=== PATIENT | female | born 1930 | race Two or more races ===

== ENCOUNTER → 2016-07-06 | Outpatient (CLI) | payer MEDICARE, OTHER ==
[2016-07-06 11:50] LABS: Urine RBC None Seen /hpf (0 - 4)
[2016-07-06 12:12] LABS: Basophils # (auto) 0 uL; Basophils % (auto) 0.3 % (0.0-2.0); Eosinophils # (auto) 0.5 uL; Eosinophils % (auto) 7.3 % (0.0-7.0); Lymphocytes # (auto) 1.4 uL; Lymphocytes % (auto) 20.4 % (10.0-50.0); Mean Corpuscular Hemoglobin 29.1 pg (28.0-32.0); Mean Corpuscular Hgb Conc. 33.4 g/dL (32.0-36.0); Mean Corpuscular Volume 87.1 fL (80.0-100.0); Mean Platelet Volume 8.9 fL (7.4-10.4); Monocytes # (auto) 0.7 uL; Neutrophils # (auto) 4.1 uL; Platelet Count (auto) 249 10^3/uL (140-450); Red Cell Distribution Width 14.6 % (11.6-16.0); White Blood Cell 6.7 10^3/uL (4.4-10.8)
[2016-07-06 12:37] LABS: Albumin 3.3 g/dL (3.4-5.0); BUN/Creatinine Ratio 41.4; Bilirubin, Total 0.4 mg/dL (0.2-1.0); Potassium 4.3 mmol/L (3.5-5.1); Total Protein 8.7 g/dL (6.4-8.2)
[2016-07-06 13:37] LABS: Urine Bilirubin Negative (Negative); Urine Blood Negative /uL (Negative); Urine Color Yellow (Yellow); Urine Glucose Normal (Normal); Urine Hyaline Cast FEW /lpf (0 - 2); Urine Ketone Negative (Negative); Urine Nitrite Negative (Negative); Urine Squamous Epithelial Cell FEW /hpf (<5); Urine Urobilinogen Normal (Negative); Urine pH 5.5 (5.0-8.0)
== END | disposition home or self-care (01) ==
LOC: LAB 10:45
PROVIDERS: ATTEND Internal Medicine
DX: E11.9 Type 2 diabetes mellitus without complications (principal); I10 Essential (primary) hypertension
CPT/HCPCS: 36415; 80053; 80061; 81001; 82043; 82607; 83036; 84439; 84443; 85025; 85652

== ENCOUNTER → 2016-07-16 | Outpatient (CLI) | payer MEDICARE, OTHER ==
[2016-07-16 11:08] LABS: Basophils # (auto) 0 uL; Basophils % (auto) 0.4 % (0.0-2.0); Eosinophils # (auto) 0.4 uL; Eosinophils % (auto) 5.9 % (0.0-7.0); Hematocrit 28.8 % (36.0-46.0); Hemoglobin 9.5 g/dL (12.2-16.2); Lymphocytes # (auto) 1.3 uL; Lymphocytes % (auto) 19.1 % (10.0-50.0); Mean Corpuscular Hemoglobin 28.8 pg (28.0-32.0); Mean Corpuscular Hgb Conc. 33.2 g/dL (32.0-36.0); Mean Corpuscular Volume 86.9 fL (80.0-100.0); Mean Platelet Volume 8.6 fL (7.4-10.4); Monocytes # (auto) 0.6 uL; Monocytes % (auto) 8.3 % (0.0-12.0); Neutrophils # (auto) 4.6 uL; Neutrophils % (auto) 66.3 % (37.0-80.0); Platelet Count (auto) 260 10^3/uL (140-450); Red Cell Distribution Width 14.6 % (11.6-16.0)
[2016-07-16 11:32] LABS: Uric Acid 10.1 mg/dL (2.6-6.0)
[2016-07-16 12:06] LABS: BUN/Creatinine Ratio 39.6; Calcium 9.2 mg/dL (8.5-10.1); Potassium 4.5 mmol/L (3.5-5.1)
== END | disposition home or self-care (01) ==
LOC: LAB 09:05
PROVIDERS: ATTEND Internal Medicine
DX: E11.9 Type 2 diabetes mellitus without complications (principal); D64.9 Anemia, unspecified
CPT/HCPCS: 36415; 80048; 82607; 83540; 83550; 84550; 85025

== ENCOUNTER → 2016-10-22 | Outpatient (CLI) | payer MEDICARE, OTHER ==
[2016-10-22 12:31] LABS: Basophils # (auto) 0 uL; Basophils % (auto) 0.4 % (0.0-2.0); Eosinophils # (auto) 0.5 uL; Eosinophils % (auto) 5.8 % (0.0-7.0); Hematocrit 27.9 % (36.0-46.0); Hemoglobin 9.5 g/dL (12.2-16.2); Lymphocytes # (auto) 1.2 uL; Lymphocytes % (auto) 14.9 % (10.0-50.0); Mean Corpuscular Hemoglobin 30.9 pg (28.0-32.0); Mean Corpuscular Volume 90.9 fL (80.0-100.0); Mean Platelet Volume 8.1 fL (7.4-10.4); Monocytes # (auto) 0.6 uL; Monocytes % (auto) 7.5 % (0.0-12.0); Neutrophils # (auto) 5.6 uL; Neutrophils % (auto) 71.4 % (37.0-80.0); Platelet Count (auto) 242 10^3/uL (140-450); Red Cell Distribution Width 18.6 % (11.6-16.0); White Blood Cell 7.9 10^3/uL (4.4-10.8)
[2016-10-22 12:57] LABS: Albumin 3.3 g/dL (3.4-5.0); BUN/Creatinine Ratio 38.8; Bilirubin, Total 0.4 mg/dL (0.2-1.0); Potassium 4.1 mmol/L (3.5-5.1); Total Protein 8.3 g/dL (6.4-8.2); Uric Acid 3.8 mg/dL (2.6-6.0)
== END | disposition home or self-care (01) ==
LOC: LAB 11:19
PROVIDERS: ATTEND Internal Medicine
DX: E11.9 Type 2 diabetes mellitus without complications (principal); E79.0 Hyperuricemia without signs of inflammatory arthritis and tophaceous disease; N18.3 Chronic kidney disease, stage 3 (moderate)
CPT/HCPCS: 36415; 80053; 83036; 84439; 84443; 84550; 85025

== ENCOUNTER 2016-12-10 12:13 | Emergency (ER) | payer MEDICARE, OTHER ==
[~2016-12-10] VITALS: Ht 154.9 cm; Wt 59.0 kg
[2016-12-10 14:35] LABS: Basophils # (auto) 0 uL; Basophils % (auto) 0.4 % (0.0-2.0); CONDITION Y; Eosinophils # (auto) 0.7 uL; Eosinophils % (auto) 9.3 % (0.0-7.0); Hematocrit 29.5 % (36.0-46.0); Hemoglobin 9.8 g/dL (12.2-16.2); Lymphocytes # (auto) 1.2 uL; Lymphocytes % (auto) 16.2 % (10.0-50.0); Mean Corpuscular Hemoglobin 31.6 pg (28.0-32.0); Mean Corpuscular Hgb Conc. 33.2 g/dL (32.0-36.0); Mean Corpuscular Volume 95.1 fL (80.0-100.0); Monocytes # (auto) 0.8 uL; Monocytes % (auto) 11.5 % (0.0-12.0); Neutrophils # (auto) 4.5 uL; Neutrophils % (auto) 62.6 % (37.0-80.0); Platelet Count (auto) 242 10^3/uL (140-450); Red Cell Distribution Width 16.9 % (11.6-16.0); White Blood Cell 7.2 10^3/uL (4.4-10.8)
[2016-12-10 15:00] VITALS: BP 135/75
[2016-12-10 15:32] LABS: Albumin 3.3 g/dL (3.4-5.0); BUN/Creatinine Ratio 35.8; Bilirubin, Total 0.3 mg/dL (0.2-1.0); Potassium 4.1 mmol/L (3.5-5.1); Total Protein 8.7 g/dL (6.4-8.2)
[2016-12-10] MEDS ORDERED: cefTRIAXone SOD 1,000 MG VL IM ONE (16:00)
== END 2016-12-10 16:10 | disposition home or self-care (01) ==
LOC: ER 12:21
DX: N89.8 Other specified noninflammatory disorders of vagina (principal); N39.0 Urinary tract infection, site not specified; D64.9 Anemia, unspecified; I12.0 Hypertensive chronic kidney disease with stage 5 chronic kidney disease or end stage renal disease; N18.9 Chronic kidney disease, unspecified
CPT/HCPCS: 36415; 80053; 81002; 85025; 87205; 96372; 99284; J0696

== ENCOUNTER 2018-02-27 12:42 | Inpatient (IN) | payer MEDICARE, OTHER ==
[~2018-02-27] VITALS: Ht 152.4 cm; Wt 62.2 kg
[2018-02-27] MEDS ORDERED: SODIUM CHLORIDE 0.9% 500 ML IVB ONE (12:50)
[2018-02-27 14:01] LABS: Basophils # (auto) 0.1 uL; Basophils % (auto) 0.6 % (0.0-2.0); Eosinophils # (auto) 0.1 uL; Eosinophils % (auto) 0.6 % (0.0-7.0); Hematocrit 33.7 % (36.0-46.0); Hemoglobin 11.3 g/dL (12.2-16.2); Lymphocytes # (auto) 1.5 uL; Lymphocytes % (auto) 16.6 % (10.0-50.0); Mean Corpuscular Hemoglobin 31.7 pg (28.0-32.0); Mean Corpuscular Hgb Conc. 33.5 g/dL (32.0-36.0); Mean Corpuscular Volume 94.4 fL (80.0-100.0); Monocytes # (auto) 0.8 uL; Monocytes % (auto) 8.6 % (0.0-12.0); Neutrophils # (auto) 6.8 uL; Neutrophils % (auto) 73.6 % (37.0-80.0); Platelet Count (auto) 251 10^3/uL (140-450); Red Blood Cells 3.57 10^6/uL (4.0-5.20); Red Cell Distribution Width 14.6 % (11.8-14.3); White Blood Cell 9.3 10^3/uL (4.4-10.8)
[2018-02-27 14:14] LABS: INR 1.03 (0.9-1.15); Partial Thromboplastin Time 23.1 sec (23.78-33.04)
[2018-02-27 14:20] LABS: Alanine Aminotransferase 16 U/L (13-56); Albumin 3.4 g/dL (3.4-5.0); Anion Gap 11 (5-15); Aspartate Aminotransferase 24 U/L (15-37); BUN/Creatinine Ratio 23.7; Blood Alcohol < 3.0 mg/dL (0-5); Calcium 9.1 mg/dL (8.5-10.1); Carbon Dioxide 24 mmol/L (21-32); Chloride 106 mmol/L (98-107); GFR African American 11 mL/min; GFR Non-African American 9 mL/min; Glucose 218 mg/dL (74-106); Magnesium 2.7 mg/dL (1.6-2.6); Potassium 4.9 mmol/L (3.5-5.1); Sodium 141 mmol/L (136-145)
[2018-02-27 14:25] LABS: Alkaline Phosphatase 105 U/L (45-117); Bilirubin, Total 0.6 mg/dL (0.2-1.0); Blood Urea Nitrogen 110 mg/dL (7-18); Total Protein 8.5 g/dL (6.4-8.2)
[2018-02-27] MEDS ORDERED: DEXTROSE (50%) 50ML SYRG IV PRN (15:00)
[2018-02-27] MEDS ORDERED: ONDANSETRON HCL 4 MG/2 ML VIAL IV PRN (15:00)
[2018-02-27] MEDS ORDERED: MORPHINE SULFATE 4 MG/ML SYR/VIAL IV PRN ×2 (15:00)
[2018-02-27] MEDS ORDERED: HYDROcodone-ACET 5/325MG TAB PO PRN (15:00)
[2018-02-27] MEDS ORDERED: NITROGLYCERIN 0.4 MG SL TAB SL PRN (15:00)
[2018-02-27] MEDS ORDERED: cefTRIAXone 1GM/50ML D5W 50 ML IV ONE ×2 (15:00→15:45)
[2018-02-27] MEDS: SOD CHL 0.45% 1,000 ML IV SCH (16:10)
[2018-02-27] MEDS: ACCU-CHEK COMFORT CURVE STRIP VI SCH (18:57)
[2018-02-27] MEDS: InsuLIN REG 1unit/0.01ml Soln (100units/ml) SC SCH (18:57)
[2018-02-27 21:34] LABS: Urine Bacteria MANY /hpf (None Seen); Urine Blood 3+ /uL (Negative); Urine Specific Gravity 1.016 (1.001-1.035); Urine WBC 308 /hpf (0 - 5); Urine WBC Clumps PRESENT /hpf (None Seen)
[2018-02-27 21:39] LABS: Alcohol, Urine < 3.0 mg/dL (0-5); Amphetamine Screen, Urine NEGATIVE (NEGATIVE); Barbiturate Scree,Urine NEGATIVE (NEGATIVE); Benzodiazephine Screen, Urine POSITIVE (NEGATIVE); Cannabinoid Screen, Urine NEGATIVE (NEGATIVE); Cocaine Screen, Urine NEGATIVE (NEGATIVE); Opiate Scree,Urine NEGATIVE (NEGATIVE); Phencyclidine Screen, Urine NEGATIVE (NEGATIVE)
[2018-02-27] MEDS ORDERED: INFLUENZA QUAD 2018-2019 0.5 ML SYRG IM ONE (21:45)
[2018-02-27] MEDS: metroNIDAZOLE 500MG/100ML 100 ML IV SCH (21:57)
[2018-02-27] MEDS: CARVEDILOL 3.125 MG TAB PO SCH (21:58)
[2018-02-27 22:00] VITALS: BP 170/97
[2018-02-27] MEDS: LABETALOL HCL 5 MG/ML ML 20ML VIAL IV PRN (22:00)
[2018-02-28] VITALS (8 sets, daily range): BP systolic 117–188; BP diastolic 52–106
[2018-02-28] MEDS: ACCU-CHEK COMFORT CURVE STRIP VI SCH ×4 (00:29→17:33)
[2018-02-28] MEDS ORDERED: GLIP-115 PO (02:02)
[2018-02-28] MEDS ORDERED: TEMA30CA5 PO (02:02)
[2018-02-28] MEDS ORDERED: DIPH50CA31 OR (02:02)
[2018-02-28] MEDS ORDERED: TRAM50TA2 PO (02:02)
[2018-02-28] MEDS ORDERED: FURO40TA PO (02:02)
[2018-02-28] MEDS ORDERED: ENAL2.5T PO (02:02)
[2018-02-28] MEDS ORDERED: ALPR0.5T PO (02:02)
[2018-02-28] MEDS ORDERED: MIRT15TA PO (02:02)
[2018-02-28] MEDS ORDERED: ASPI81TA27 PO (02:02)
[2018-02-28] MEDS ORDERED: CARV3.1240 PO (02:02)
[2018-02-28] MEDS ORDERED: DOCU-94 PO (02:02)
[2018-02-28] MEDS: SOD CHL 0.45% 1,000 ML IV SCH (04:20)
[2018-02-28] MEDS: LABETALOL HCL 5 MG/ML ML 20ML VIAL IV PRN ×2 (05:05→18:25)
[2018-02-28] MEDS: metroNIDAZOLE 500MG/100ML 100 ML IV SCH ×3 (05:11→21:48)
[2018-02-28] MEDS: InsuLIN REG 1unit/0.01ml Soln (100units/ml) SC SCH ×4 (05:21→17:33)
[2018-02-28 06:39] LABS: BUN/Creatinine Ratio 24.9; Calcium 9.2 mg/dL (8.5-10.1); Potassium 3.6 mmol/L (3.5-5.1)
[2018-02-28 06:47] LABS: Basophils # (auto) 0.1 uL; Basophils % (auto) 0.6 % (0.0-2.0); Eosinophils # (auto) 0.1 uL; Hematocrit 31.7 % (36.0-46.0); Hemoglobin 10.8 g/dL (12.2-16.2); Lymphocytes # (auto) 1.5 uL; Mean Corpuscular Hemoglobin 31.9 pg (28.0-32.0); Mean Corpuscular Volume 93.8 fL (80.0-100.0); Monocytes # (auto) 1.3 uL; Monocytes % (auto) 15.3 % (0.0-12.0); Neutrophils # (auto) 5.6 uL; Neutrophils % (auto) 65.1 % (37.0-80.0); Nucleated Red Blood Cells % 0.1 %; Platelet Count (auto) 199 10^3/uL (140-450); Red Blood Cells 3.38 10^6/uL (4.0-5.20); Red Cell Distribution Width 14.3 % (11.8-14.3); White Blood Cell 8.5 10^3/uL (4.4-10.8)
[2018-02-28] MEDS ORDERED: cefTRIAXone 1GM/50ML D5W 50 ML IV SCH (09:00)
[2018-02-28] MEDS: ASPirin 81 mg TAB PO SCH (09:24)
[2018-02-28] MEDS: CARVEDILOL 3.125 MG TAB PO SCH (09:24)
[2018-02-28] MEDS ORDERED: ERTAPENEM SOD INJ 0.5 GM in SODIUM CHL 0.9% 50 ML IV ONE (12:00)
[2018-02-28] MEDS: D5W/SOD CHL 0.45% 1,000 ML IV SCH ×2 (12:59→22:00)
[2018-02-28] MEDS: SILVER SULFADIAZINE 1 % TOPICAL CREAM 50GM TOP SCH ×2 (15:02→21:48)
[2018-03-01] MEDS: ACCU-CHEK COMFORT CURVE STRIP VI SCH ×4 (00:02→17:15)
[2018-03-01] MEDS: InsuLIN REG 1unit/0.01ml Soln (100units/ml) SC SCH ×4 (00:13→17:15)
[2018-03-01] MEDS: LABETALOL HCL 5 MG/ML ML 20ML VIAL IV PRN ×5 (00:13→22:35)
[2018-03-01 05:00] VITALS: BP 150/86
[2018-03-01] MEDS: metroNIDAZOLE 500MG/100ML 100 ML IV SCH ×3 (05:39→20:38)
[2018-03-01 05:41] LABS: BUN/Creatinine Ratio 24.8
[2018-03-01 08:11] VITALS: BP 159/79
[2018-03-01] MEDS: D5W/SOD CHL 0.45% 1,000 ML IV SCH ×2 (09:23→20:38)
[2018-03-01] MEDS: ASPirin 81 mg TAB PO SCH (10:00)
[2018-03-01] MEDS: SILVER SULFADIAZINE 1 % TOPICAL CREAM 50GM TOP SCH ×2 (10:00→20:38)
[2018-03-01] MEDS: ERTAPENEM SOD INJ 0.5 GM in SODIUM CHL 0.9% 50 ML IV SCH (10:02)
[2018-03-01 12:01] VITALS: BP 168/78
[2018-03-01] MEDS ORDERED: FLUCONAZOLE 200MG/100ML 100 ML IV ONE (14:45)
[2018-03-01] MEDS ORDERED: POTASSIUM CHL 20MEQ/100ML 100 ML IV ONE (14:45)
[2018-03-01 16:48] VITALS: BP 158/80
[2018-03-01 20:00] VITALS: BP 152/74
[2018-03-01 22:00] VITALS: BP 160/77
[2018-03-02] MEDS: D5W/SOD CHL 0.45% 1,000 ML IV SCH (04:00)
[2018-03-02] MEDS: metroNIDAZOLE 500MG/100ML 100 ML IV SCH ×3 (04:45→20:21)
[2018-03-02] MEDS: ACCU-CHEK COMFORT CURVE STRIP VI SCH ×5 (04:45→23:14)
[2018-03-02] MEDS: LABETALOL HCL 5 MG/ML ML 20ML VIAL IV PRN ×3 (04:46→19:02)
[2018-03-02 05:00] VITALS: BP 157/88
[2018-03-02] MEDS: InsuLIN REG 1unit/0.01ml Soln (100units/ml) SC SCH ×5 (05:29→23:14)
[2018-03-02 06:28] LABS: BUN/Creatinine Ratio 21.9; Calcium 8.4 mg/dL (8.5-10.1); Potassium 3.4 mmol/L (3.5-5.1)
[2018-03-02 08:06] VITALS: BP 153/85
[2018-03-02] MEDS: FLUCONAZOLE 200MG/100ML 100 ML IV SCH (08:19)
[2018-03-02] MEDS ORDERED: FLUCONAZOLE 200MG/100ML 100 ML IV SCH (10:00)
[2018-03-02 10:40] LABS: Basophils # (auto) 0 uL; Basophils % (auto) 0.3 % (0.0-2.0); Eosinophils # (auto) 0.1 uL; Eosinophils % (auto) 1.3 % (0.0-7.0); Hematocrit 26.8 % (36.0-46.0); Hemoglobin 8.9 g/dL (12.2-16.2); Lymphocytes # (auto) 1.1 uL; Lymphocytes % (auto) 11.8 % (10.0-50.0); Mean Corpuscular Hemoglobin 31.9 pg (28.0-32.0); Mean Corpuscular Hgb Conc. 33.2 g/dL (32.0-36.0); Mean Corpuscular Volume 96.3 fL (80.0-100.0); Monocytes # (auto) 1.2 uL; Monocytes % (auto) 12.7 % (0.0-12.0); Neutrophils % (auto) 73.9 % (37.0-80.0); Platelet Count (auto) 158 10^3/uL (140-450); Red Blood Cells 2.79 10^6/uL (4.0-5.20); Red Cell Distribution Width 14.3 % (11.8-14.3); White Blood Cell 9.4 10^3/uL (4.4-10.8)
[2018-03-02] MEDS: ASPirin 81 mg TAB PO SCH (10:44)
[2018-03-02] MEDS: ERTAPENEM SOD INJ 0.5 GM in SODIUM CHL 0.9% 50 ML IV SCH (10:44)
[2018-03-02 12:22] VITALS: BP 127/67
[2018-03-02] MEDS: SILVER SULFADIAZINE 1 % TOPICAL CREAM 50GM TOP SCH ×2 (15:58→21:45)
[2018-03-02] MEDS: POTASSIUM CHLORIDE 20 MEQ in D5W 5% 1,000 ML IV SCH (16:00)
[2018-03-02 17:13] VITALS: BP 152/76
[2018-03-02] MEDS ORDERED: TEMAZEPAM 15 MG CAP PO PRN (21:45)
[2018-03-02 22:00] VITALS: BP 159/83
[2018-03-02 23:09] VITALS: BP 110/61
[2018-03-03 05:00] VITALS: BP 122/59
[2018-03-03] MEDS: metroNIDAZOLE 500MG/100ML 100 ML IV SCH ×3 (05:25→22:10)
[2018-03-03] MEDS: ACCU-CHEK COMFORT CURVE STRIP VI SCH ×4 (05:25→23:49)
[2018-03-03 05:26] LABS: Basophils # (auto) 0 uL; Basophils % (auto) 0.1 % (0.0-2.0); Eosinophils # (auto) 0.4 uL; Eosinophils % (auto) 5.2 % (0.0-7.0); Hematocrit 25.8 % (36.0-46.0); Hemoglobin 8.5 g/dL (12.2-16.2); Lymphocytes # (auto) 1.5 uL; Lymphocytes % (auto) 19.3 % (10.0-50.0); Mean Corpuscular Hemoglobin 32.2 pg (28.0-32.0); Mean Corpuscular Hgb Conc. 33.2 g/dL (32.0-36.0); Mean Corpuscular Volume 97.2 fL (80.0-100.0); Monocytes % (auto) 12.7 % (0.0-12.0); Neutrophils # (auto) 4.9 uL; Neutrophils % (auto) 62.7 % (37.0-80.0); Red Blood Cells 2.65 10^6/uL (4.0-5.20); Red Cell Distribution Width 14.7 % (11.8-14.3); White Blood Cell 7.8 10^3/uL (4.4-10.8)
[2018-03-03] MEDS: InsuLIN REG 1unit/0.01ml Soln (100units/ml) SC SCH ×4 (05:28→23:49)
[2018-03-03 05:40] LABS: Platelet Count (auto) 142 10^3/uL (140-450)
[2018-03-03 05:41] LABS: Calcium 8.5 mg/dL (8.5-10.1); Potassium 3.7 mmol/L (3.5-5.1)
[2018-03-03] MEDS: POTASSIUM CHLORIDE 20 MEQ in D5W 5% 1,000 ML IV SCH ×3 (07:00→12:52)
[2018-03-03 09:00] VITALS: BP 122/62
[2018-03-03] MEDS: FLUCONAZOLE 200MG/100ML 100 ML IV SCH (09:49)
[2018-03-03] MEDS: SILVER SULFADIAZINE 1 % TOPICAL CREAM 50GM TOP SCH ×2 (09:50→22:10)
[2018-03-03] MEDS ORDERED: ALPRAZolam 0.5 MG TAB PO SCH (10:00)
[2018-03-03] MEDS: ASPirin 81 mg TAB PO SCH (10:00)
[2018-03-03] MEDS: ERTAPENEM SOD INJ 0.5 GM in SODIUM CHL 0.9% 50 ML IV SCH (11:00)
[2018-03-03 12:42] VITALS: BP 98/49
[2018-03-03 16:05] VITALS: BP 102/59
[2018-03-03 22:00] VITALS: BP 108/56
[2018-03-03] MEDS: Glucerna Carbsteady SHAKE Vanilla 8oz PO SCH (22:00)
[2018-03-04 04:53] VITALS: BP 89/39
[2018-03-04] MEDS: Glucerna Carbsteady SHAKE Vanilla 8oz PO SCH ×3 (06:00→22:00)
[2018-03-04] MEDS: InsuLIN REG 1unit/0.01ml Soln (100units/ml) SC SCH ×3 (06:00→18:00)
[2018-03-04 06:05] LABS: Basophils # (auto) 0 uL; Basophils % (auto) 0.2 % (0.0-2.0); Eosinophils # (auto) 0.8 uL; Eosinophils % (auto) 9.1 % (0.0-7.0); Hemoglobin 8.5 g/dL (12.2-16.2); Lymphocytes # (auto) 1.1 uL; Lymphocytes % (auto) 12.7 % (10.0-50.0); Mean Corpuscular Hemoglobin 32.9 pg (28.0-32.0); Mean Corpuscular Volume 96.7 fL (80.0-100.0); Monocytes # (auto) 0.8 uL; Monocytes % (auto) 8.8 % (0.0-12.0); Neutrophils # (auto) 6.3 uL; Neutrophils % (auto) 69.2 % (37.0-80.0); Platelet Count (auto) 143 10^3/uL (140-450); Red Blood Cells 2.59 10^6/uL (4.0-5.20); Red Cell Distribution Width 14.4 % (11.8-14.3); White Blood Cell 9.1 10^3/uL (4.4-10.8)
[2018-03-04] MEDS: ACCU-CHEK COMFORT CURVE STRIP VI SCH ×3 (06:10→18:00)
[2018-03-04] MEDS: metroNIDAZOLE 500MG/100ML 100 ML IV SCH ×3 (06:11→22:52)
[2018-03-04 06:18] LABS: Calcium 8.7 mg/dL (8.5-10.1); Potassium 4.3 mmol/L (3.5-5.1)
[2018-03-04 06:22] LABS: BUN/Creatinine Ratio 17.8
[2018-03-04] MEDS: ASPirin 81 mg TAB PO SCH (10:44)
[2018-03-04] MEDS: FLUCONAZOLE 200MG/100ML 100 ML IV SCH (10:44)
[2018-03-04] MEDS: SILVER SULFADIAZINE 1 % TOPICAL CREAM 50GM TOP SCH ×2 (10:45→22:53)
[2018-03-04] MEDS: POTASSIUM CHLORIDE 20 MEQ in D5W 5% 1,000 ML IV SCH (14:27)
[2018-03-04] MEDS: ERTAPENEM SOD INJ 0.5 GM in SODIUM CHL 0.9% 50 ML IV SCH (15:47)
[2018-03-04 18:08] VITALS: BP 124/67
[2018-03-04 21:50] VITALS: BP 113/78
[2018-03-05] MEDS: ACCU-CHEK COMFORT CURVE STRIP VI SCH ×4 (00:21→17:44)
[2018-03-05] MEDS: POTASSIUM CHLORIDE 20 MEQ in D5W 5% 1,000 ML IV SCH ×2 (03:39→23:51)
[2018-03-05 05:00] VITALS: BP 138/75
[2018-03-05] MEDS: metroNIDAZOLE 500MG/100ML 100 ML IV SCH ×3 (05:38→21:40)
[2018-03-05] MEDS: InsuLIN REG 1unit/0.01ml Soln (100units/ml) SC SCH ×4 (05:39→17:44)
[2018-03-05] MEDS: Glucerna Carbsteady SHAKE Vanilla 8oz PO SCH ×3 (05:39→21:41)
[2018-03-05 06:03] LABS: BUN/Creatinine Ratio 19.1; Calcium 8.2 mg/dL (8.5-10.1); Potassium 4.1 mmol/L (3.5-5.1)
[2018-03-05] MEDS: FLUCONAZOLE 200MG/100ML 100 ML IV SCH (08:32)
[2018-03-05 09:48] VITALS: BP 125/66
[2018-03-05] MEDS: ASPirin 81 mg TAB PO SCH (09:57)
[2018-03-05] MEDS: SILVER SULFADIAZINE 1 % TOPICAL CREAM 50GM TOP SCH ×2 (09:58→21:41)
[2018-03-05] MEDS: ERTAPENEM SOD INJ 0.5 GM in SODIUM CHL 0.9% 50 ML IV SCH (10:03)
[2018-03-05 13:30] VITALS: BP 145/76
[2018-03-05 16:53] VITALS: BP 150/80
[2018-03-05 22:00] VITALS: BP 135/72
[2018-03-06] MEDS: ACCU-CHEK COMFORT CURVE STRIP VI SCH ×3 (00:26→11:51)
[2018-03-06] MEDS: InsuLIN REG 1unit/0.01ml Soln (100units/ml) SC SCH ×3 (00:30→11:51)
[2018-03-06 05:00] VITALS: BP 158/76
[2018-03-06 06:05] LABS: Albumin 2.2 g/dL (3.4-5.0); BUN/Creatinine Ratio 20.1; Calcium 8.6 mg/dL (8.5-10.1)
[2018-03-06 06:07] LABS: Bilirubin, Total 0.4 mg/dL (0.2-1.0); Total Protein 6.1 g/dL (6.4-8.2)
[2018-03-06] MEDS: metroNIDAZOLE 500MG/100ML 100 ML IV SCH ×3 (06:22→23:19)
[2018-03-06] MEDS: Glucerna Carbsteady SHAKE Vanilla 8oz PO SCH ×3 (06:25→23:20)
[2018-03-06 09:28] VITALS: BP 159/87
[2018-03-06] MEDS: FLUCONAZOLE 200MG/100ML 100 ML IV SCH (11:14)
[2018-03-06] MEDS: SILVER SULFADIAZINE 1 % TOPICAL CREAM 50GM TOP SCH ×2 (11:14→23:30)
[2018-03-06] MEDS: ASPirin 81 mg TAB PO SCH (11:16)
[2018-03-06 12:01] VITALS: BP 140/72
[2018-03-06] MEDS: ERTAPENEM SOD INJ 0.5 GM in SODIUM CHL 0.9% 50 ML IV SCH (12:27)
[2018-03-06 16:39] VITALS: BP 147/76
[2018-03-06 22:00] VITALS: BP 160/79
[2018-03-07 05:00] VITALS: BP 166/92
[2018-03-07] MEDS: metroNIDAZOLE 500MG/100ML 100 ML IV SCH ×2 (06:32→13:47)
[2018-03-07] MEDS: Glucerna Carbsteady SHAKE Vanilla 8oz PO SCH ×2 (07:00→14:00)
[2018-03-07 08:32] VITALS: BP 164/83
[2018-03-07] MEDS: FLUCONAZOLE 200MG/100ML 100 ML IV SCH (09:05)
[2018-03-07] MEDS: ASPirin 81 mg TAB PO SCH (09:09)
[2018-03-07] MEDS: SILVER SULFADIAZINE 1 % TOPICAL CREAM 50GM TOP SCH (10:25)
[2018-03-07] MEDS: ERTAPENEM SOD INJ 0.5 GM in SODIUM CHL 0.9% 50 ML IV SCH (10:25)
[2018-03-07 13:00] VITALS: BP 158/88
[2018-03-07 16:37] VITALS: BP 159/57
[2018-03-07] MEDS ORDERED: SILV1CRE82 TOP (19:12)
[2018-03-07] MEDS ORDERED: FLUC200T50 PO (19:12)
[2018-03-07] MEDS ORDERED: AMOX-263 PO (19:12)
== END 2018-03-07 20:07 | disposition hospice, home (50) | DRG 682 ==
LOC: ER 12:42 → EDBD 12:42 → TELE 12:43 → TELE-WESTW 21:25
PROVIDERS: ADMIT Internal Medicine; ATTEND Internal Medicine
DX: N17.9 Acute kidney failure, unspecified (principal); J18.9 Pneumonia, unspecified organism; E44.0 Moderate protein-calorie malnutrition; N39.0 Urinary tract infection, site not specified; G93.40 Encephalopathy, unspecified; N18.9 Chronic kidney disease, unspecified; L98.499 Non-pressure chronic ulcer of skin of other sites with unspecified severity; E11.22 Type 2 diabetes mellitus with diabetic chronic kidney disease; I12.9 Hypertensive chronic kidney disease with stage 1 through stage 4 chronic kidney disease, or unspecified chronic kidney disease; Z66 Do not resuscitate; D64.9 Anemia, unspecified; F03.90 Unspecified dementia, unspecified severity, without behavioral disturbance, psychotic disturbance, mood disturbance, and anxiety; N76.6 Ulceration of vulva; R29.810 Facial weakness; Z51.5 Encounter for palliative care; Z79.82 Long term (current) use of aspirin; Z68.26 Body mass index [BMI] 26.0-26.9, adult
CPT/HCPCS: 36415; 51702; 70450; 71045; 80048; 80053; 80307; 80320; 81001; 82140; 82962; 83735; 83880; 84484; 85025; 85610; 85730; 87086; 87205; 90674; 92610; 93005; 96361; 96374; 97110; 97530; A6257; G0378; J0696; J1335; J1450; J1815; J2405; J3480; J3490